=== PATIENT | female | born 1950 | race Caucasian/White ===

== ENCOUNTER 2022-12-31 14:12 | Outpatient (CLI) | payer MEDICARE, OTHER | END 2022-12-31 14:13 | disposition home or self-care (01) | LOC: CSHMAMMO 14:12 | PROVIDERS: ATTEND Internal Medicine | DX: Z13.820 Encounter for screening for osteoporosis (principal); M81.0 Age-related osteoporosis without current pathological fracture; M85.89 Other specified disorders of bone density and structure, multiple sites | CPT/HCPCS: 77080 ==

== ENCOUNTER 2024-12-25 08:42 | Outpatient (CLI) | payer MEDICARE, OTHER | END 2024-12-25 08:43 | disposition home or self-care (01) | LOC: CSHMAMMO 08:42 | PROVIDERS: ATTEND Internal Medicine | DX: M85.89 Other specified disorders of bone density and structure, multiple sites (principal); M81.0 Age-related osteoporosis without current pathological fracture | CPT/HCPCS: 77080 ==